=== PATIENT | female | born 2000 | race Caucasian/White ===

== ENCOUNTER 2023-02-10 20:45 | Emergency (ER) | payer OTHER ==
[~2023-02-10] VITALS: Ht 154.9 cm; Wt 51.7 kg
[2023-02-10 21:40] VITALS: BP 113/64; TEMP 98.2
[2023-02-10 22:34] VITALS: O2SAT 98
== END 2023-02-10 22:35 | disposition home or self-care (01) ==
LOC: ER 21:07
DX: L08.9 Local infection of the skin and subcutaneous tissue, unspecified (principal)